=== PATIENT | male | born 1985 | race American Indian/Alaskan Native ===

== ENCOUNTER 2017-07-26 20:45 | Emergency (ER) | payer OTHER ==
[2017-07-26 21:26] VITALS: BP 135/78; PULSE 80; RESP 16; TEMP 97.8
[2017-07-26 21:31] VITALS: BMI 36.3
--- NOTE | 2017-07-26 21:37 | ED PDOC ---
Arrival/HPI - General Chief Complaint: ENT Problem Time Seen by Provider: 07/26/17 21:36 Historian: Patient - History of Present Illness Narrative History of Present Illness (Text): 07/26/17 21:36 This 31 yo male who denies pmh, presents to this ED c/o left sore throat. Past Medical History - Past History Past History: No Previous - Infectious Disease Hx of Infectious Diseases: None - Tetanus Immunization Tetanus Immunization: Unknown - Past Medical History Past Medical History: No Previous - Psychiatric Hx Depression: No Hx Emotional Abuse: No Hx Physical Abuse: No Hx Substance Use: No - Past Surgical History Past Surgical History: No Previous - Surgical History Other/Comment: hernia surgery - Anesthesia Hx Anesthesia: No - Suicidal Assessment Feels Threatened In Home Enviroment: No Family/Social History Smoking Status: Never Smoked Hx Alcohol Use: No Hx Substance Use: No Hx Substance Use Treatment: No Allergies/Home Meds Allergies/Adverse Reactions: Allergies No Known Allergies Allergy (Verified 07/26/17 21:31) Physical Exam Vital Signs Temp Pulse Resp BP Pulse Ox 07/26/17 21:26 97.8 F 80 16 135/78 100 Medical Decision Making ED Course and Treatment: 07/26/17 21:55 Re-evaluation. Patient feels better. Discussed results and plan with patient who expresses understanding. All questions answered and there is agreement with the plan to discharge home with instructions. Patient stable for discharge. Return if symptoms persist or worsen. 07/26/17 21:55 patient refused rapid strep test Re-evaluation Time: 21:55 Reassessment Condition: Re-examined, Unchanged Disposition/Present on Arrival - Present on Arrival Any Indicators Present on Arrival: No History of DVT/PE: No History of Uncontrolled Diabetes: No Urinary Catheter: No History of Decub. Ulcer: No History Surgical Site Infection Following: None - Disposition Have Diagnosis and Disposition been Completed?: Yes Diagnosis: Sore throat Disposition: HOME/ ROUTINE Disposition Time: 21:55 Patient Plan: Discharge Condition: GOOD Discharge Instructions (ExitCare): Pharyngitis (ED) Additional Instructions: Call private doctor for follow up visit in 1-2 days. Take medication as instructed. Follow up ENT doctor if sore throat persist Prescriptions: Amoxicillin [Amoxil 500 mg Cap] 500 mg PO TID #30 cap Naproxen 500 mg PO BID PRN #14 tab PRN Reason: Pain, Severe (8-10) Referrals: Juventino Goldstein MD [Primary Care Provider] - Follow up with primary Forms: [employer] (Kyrgyz)
[2017-07-26 22:25] VITALS: O2SAT 98
== END 2017-07-26 22:26 | disposition home or self-care (01) ==
LOC: ED 20:45
DX: J02.9 Acute pharyngitis, unspecified (principal)

== ENCOUNTER 2017-11-28 20:13 | Emergency (ER) | payer OTHER ==
[2017-11-28 20:14] VITALS: BMI 36.3
[2017-11-28 20:57] VITALS: RESP 18; TEMP 97.4; O2SAT 100
[2017-11-28] MEDS ORDERED: Sodium Chloride 0.9% 1,000 ML IV STA (21:23)
--- NOTE | 2017-11-28 21:30 | ED PDOC ---
Arrival/HPI - General Chief Complaint: Headache Time Seen by Provider: 11/28/17 21:19 Historian: Patient - History of Present Illness Narrative History of Present Illness (Text): 11/28/17 21:22 A 32 year old male, with no significant past medical history, presents to the emergency department today complaining of generalized malaise that began this afternoon. He states that on his way back from work he became lightheaded. The patient notes that when his symptoms began, he took an Aspirin with no relief of his symptoms. He notes that he was feeling weak, he began to feel a tingling sensation in both his arms, nausea, vomiting. The patient's notes that the patient woke out in a cold sweat and was having difficulty walking which prompted them to call EMS. The patient does not recall the last time he saw his PMD and notes that he has not received a flu shot. The patient denies fevers, chest pain, shortness of breath, dyspnea on exertion, cough, abdominal pain, diarrhea, back pain, neck pain, urinary/bowel changes, sick contacts, or any other complaint. PMD: Dr. Cari Goldstein Time/Duration: Other (This Afternoon) Symptom Onset: Sudden Symptom Course: Unchanged Activities at Onset: Rest, Light Context: Home Past Medical History - Provider Review Nursing Documentation Reviewed: Yes - Past History Past History: No Previous - Infectious Disease Hx of Infectious Diseases: None - Tetanus Immunization Tetanus Immunization: Unknown - Past Medical History Past Medical History: No Previous - Psychiatric Hx Substance Use: No - Past Surgical History Past Surgical History: No Previous - Surgical History Other/Comment: hernia surgery - Anesthesia Hx Anesthesia: No - Suicidal Assessment Feels Threatened In Home Enviroment: No Family/Social History - Physician Review Nursing Documentation Reviewed: Yes Family/Social History: No Known Family HX Smoking Status: Never Smoked Hx Alcohol Use: No Hx Substance Use: No Hx Substance Use Treatment: No Allergies/Home Meds Allergies/Adverse Reactions: Allergies No Known Allergies Allergy (Verified 07/26/17 21:31) Review of Systems - Physician Review All systems were reviewed & negative as marked: Yes - Review of Systems Constitutional: absent: Fevers Respiratory: absent: SOB, Cough Cardiovascular: absent: Chest Pain, HU[place]HREY Gastrointestinal: Nausea, Vomiting. absent: Abdominal Pain, Stool Changes, Diarrhea Genitourinary Male: absent: Urinary Output Changes Musculoskeletal: Other (Tingling sensation in arms. ). absent: Back Pain, Neck Pain Neurological: Dizziness (Lightheadedness). absent: Headache Physical Exam Vital Signs Reviewed: Yes Vital Signs Temp Pulse Resp BP Pulse Ox 11/28/17 20:56 97.4 F L 82 18 153/87 H 100 Temperature: Hypothermic Blood Pressure: Hypertensive Pulse: Regular Respiratory Rate: Normal Appearance: Positive for: Well-Appearing, Non-Toxic Pain Distress: None Mental Status: Positive for: Alert and Oriented X 3 - Systems Exam Head: Present: Atraumatic, Normocephalic Pupils: Present: PERRL Extroacular Muscles: Present: EOMI Conjunctiva: Present: Normal Mouth: Present: Moist Mucous Membranes Neck: Present: Normal Range of Motion Respiratory/Chest: Present: Clear to Auscultation, Good Air Exchange. No: Respiratory Distress, Accessory Muscle Use Cardiovascular: Present: Regular Rate and Rhythm, Normal S1, S2. No: Murmurs Abdomen: Present: Normal Bowel Sounds. No: Tenderness, Distention, Peritoneal Signs Back: Present: Normal Inspection Upper Extremity: Present: Normal Inspection. No: Cyanosis, Edema Lower Extremity: Present: Normal Inspection. No: Edema Neurological: Present: GCS=15, CN II-XII Intact, Speech Normal Skin: Present: Warm, Dry, Normal Color. No: Rashes Psychiatric: Present: Alert, Oriented x 3, Normal Insight, Normal Concentration Medical Decision Making ED Course and Treatment: 11/28/17 21:31 Impression: A 32 year old male presents to the emergency department complaining of generalized malaise that began this afternoon. Plan: -- Chest X-ray -- Labs -- Urinalysis -- Zofran and IV Fluids -- Reassess and disposition Prior Visits: Notes and results from previous visits were reviewed. Patient was last seen in the emergency department on 07/26/17. The patient was seen in the emergency department for a complaint of 2 day duration sore throat. The patient was discharged home. Progress Notes: - Lab Interpretations Lab Results: 11/28/17 21:49 11/28/17 21:49 Lab Results 11/28/17 21:49: Sodium 142, Potassium 4.5, Chloride 105, Carbon Dioxide 28, Anion Gap 14, BUN 17, Creatinine 1.2, Est GFR ( Amer) > 60, Est GFR (Non- Af Amer) > 60, Random Glucose 129 H, Calcium 9.6, Total Bilirubin 0.7, AST 35, ALT 41, Alkaline Phosphatase 85, Lactate Dehydrogenase 460, Total Creatine Kinase 387 H, CK-MB (CK-2) 1.6, CK-MB (CK-2) % Cancelled, Troponin I < 0.01, Total Protein 8.1, Albumin 4.5, Globulin 3.6, Albumin/Globulin Ratio 1.3, Lipase 59 11/28/17 21:49: Urine Color Yellow, Urine Appearance Clear, Urine pH 7.0, Ur Specific Halliday 1.025, Urine Protein 30 H, Urine Glucose (UA) Negative, Urine Ketones Negative, Urine Blood Negative, Urine Nitrate Negative, Urine Bilirubin Negative, Urine Urobilinogen 0.2, Ur Leukocyte Esterase Negative, Urine RBC 0 - 2, Urine WBC 0 - 2, Ur Epithelial Cells 0 - 2, Urine Bacteria Occ 11/28/17 21:49: PT 12.6 H, INR 1.10 H 11/28/17 21:49: WBC 12.2 H, RBC 4.65, Hgb 14.2, Hct 42.3, MCV 91.0, MCH 30.5, MCHC 33.6, RDW 12.9, Plt Count 199, MPV 11.8 H, Gran % 81.0 H, Lymph % (Auto) 15.0 L, Pershing % (Auto) 3.6, Eos % (Auto) 0.2 L, Baso % (Auto) 0.2, Gran # 9.85 H , Lymph # 1.8, Pershing # 0.4, Eos # 0.0, Baso # 0.02 I have reviewed the lab results: Yes - RAD Interpretation Radiology Orders: 11/28/17 21:23 CHEST PORTABLE [RAD] Stat - Medication Orders Current Medication Orders: Discontinued Medications Sodium Chloride (Sodium Chloride 0.9%) 1,000 mls @ 999 mls/hr IV .Q1H1M STA Stop: 11/28/17 22:23 Last Admin: 11/28/17 21:59 Dose: 999 mls/hr eMAR Start Stop Document 11/28/17 21:59 OCS (Rec: 11/28/17 21:59 OCS [id number]) Intravenous Solution Start Date 11/28/17 Start Time 21:59 End Date 11/28/17 End time 23:00 Total Infusion Time 61 Ondansetron HCl (Zofran Inj) 4 mg IVP STAT STA Stop: 11/28/17 21:24 Last Admin: 11/28/17 21:59 Dose: 4 mg IVP Administration Document 11/28/17 21:59 OCS (Rec: 11/28/17 22:00 OCS [id number]) Charges for Administration # of IVP Administrations 1 - Scribe Statement The provider has reviewed the documentation as recorded by the Sergioibe Funmi Millan Provider Scribe Attestation: All medical record entries made by the Scribe were at my direction and personally dictated by me. I have reviewed the chart and agree that the record accurately reflects my personal performance of the history, physical exam, medical decision making, and the department course for this patient. I have also personally directed, reviewed, and agree with the discharge instructions and disposition. Disposition/Present on Arrival - Present on Arrival Any Indicators Present on Arrival: No History of DVT/PE: No History of Uncontrolled Diabetes: No Urinary Catheter: No History of Decub. Ulcer: No History Surgical Site Infection Following: None - Disposition Have Diagnosis and Disposition been Completed?: Yes Diagnosis: Viral syndrome Disposition: HOME/ ROUTINE Disposition Time: :22 Patient Plan: Discharge Condition: GOOD Discharge Instructions (ExitCare): Viral Syndrome (ED) Additional Instructions: Armando- All of your tests were normal tonight..... This is most probably just a viral infection. Rest, Plenty of fluids, Zofran ODT for nausea or vomiting, Return to us if worse, Follow up with your doctor later this week. Brian- Dr. Silvino Phoenix Forms: [employer] (Turkmen)
[2017-11-28 22:01] LABS: BASO # 0.02 K/mm3 (0.0-2.0); BASO % 0.2 % (0.0-3.0); EOS % 0.2 % (1.5-5.0); GRAN # 9.85 (1.4-6.5); HEMOGLOBIN 14.2 g/dL (14.0-18.0); LYMPH # 1.8 (1.2-3.4); MEAN CORPUSCULAR HEMOGLOBIN 30.5 pg (25.0-35.0); MEAN CORPUSCULAR HGB CONC 33.6 g/dl (31.0-37.0); MEAN PLATELET VOLUME 11.8 fl (7.0-11.0); MONO # 0.4 (0.1-0.6); MONO % 3.6 % (1.0-6.0); RBC 4.65 10^6/uL (3.5-6.1); RED CELL DISTRIBUTION WIDTH 12.9 % (11.5-14.5); URINE BILIRUBIN NEGATIVE (NEGATIVE); URINE BLOOD NEGATIVE (NEGATIVE); URINE GLUCOSE (UA) NEGATIVE (NEGATIVE); URINE LEUKOCYTE ESTERASE NEGATIVE Leu/uL (NEGATIVE); URINE NITRATE NEGATIVE (NEGATIVE); URINE PROTEIN 30 mg/dL (<30 mg/dL); URINE UROBILINOGEN 0.2 E.U./dL (<1 E.U./dL); WHITE BLOOD COUNT 12.2 10^3/ul (4.5-11.0)
[2017-11-28 22:06] LABS: URINE APPEARANCE CLEAR (CLEAR); URINE COLOR YELLOW (YELLOW)
[2017-11-28 22:09] LABS: ALB/GLOB RATIO 1.3 (1.1-1.8); ALBUMIN 4.5 g/dL (3.0-4.8); ALT/SGPT 41 U/L (7-56); AST/SGOT 35 U/L (17-59); BLOOD UREA NITROGEN 17 mg/dL (7-21); CALCIUM 9.6 mg/dL (8.4-10.5); GFR AFRICAN-AMERICAN > 60; GFR NON-AFRICAN AMERICAN > 60; INR 1.1 (0.93-1.08); LIPASE 59 U/L (23-300); PROTHROMBIN TIME 12.6 SECONDS (9.4-12.5)
[2017-11-28 22:17] LABS: URINE BACTERIA OCC (NEG); URINE EPITHELIAL CELLS 0 - 2 /hpf (0-5); URINE RBC 0 - 2 /hpf (0-2); URINE WBC 0 - 2 /hpf (0-6)
[2017-11-28 22:20] LABS: TROPONIN I < 0.01 ng/mL
[2017-11-28 22:31] LABS: CK-MB 1.6 ng/mL (0.0-3.6)
[2017-11-29 01:37] VITALS: BP 123/77; PULSE 80
--- NOTE | 2017-11-29 09:37 | RAD ---
HISTORY: weak/dizzy COMPARISON: 07/06/2013 FINDINGS: LUNGS: No active pulmonary disease. PLEURA: No significant pleural effusion identified, no pneumothorax apparent. CARDIOVASCULAR: Normal. OSSEOUS STRUCTURES: No significant abnormalities. VISUALIZED UPPER ABDOMEN: Normal. OTHER FINDINGS: None. IMPRESSION: No active disease.
== END 2017-11-29 01:37 | disposition home or self-care (01) ==
LOC: ED 20:13
DX: B34.9 Viral infection, unspecified (principal)
CPT/HCPCS: 71045; 80053; 81001; 82550; 82553; 83615; 83690; 84484; 85025; 85610; 96361; 96374; 99285; J2405; J7040

== ENCOUNTER 2018-03-19 06:14 | Emergency (ER) | payer OTHER ==
[2018-03-19 06:49] VITALS: BMI 37.3
[2018-03-19 07:01] VITALS: PULSE 90; RESP 18; TEMP 98.1; O2SAT 98
[2018-03-19 07:03] VITALS: BP 135/83
--- NOTE | 2018-03-19 07:18 | ED PDOC ---
Arrival/HPI - General Chief Complaint: Lower Extremity Problem/Injury Time Seen by Provider: 03/19/18 07:05 Historian: Patient - History of Present Illness Narrative History of Present Illness (Text): 03/19/18 07:18 A 32 year old male, who denies any significant past medical history, presents to the emergency department for right knee pain, which began 3 days ago. The patient states he was horse playing with his son when he suddenly heard a "pop in his leg." He states that he has pain and he notices when he is walking he is limping. The patient denies any left knee pain, right leg pain, right ankle pain , fever, back pain, chest pain, or any other complaints at this time. The patient denies taking any Tylenol or Motrin for the pain and swelling. Time/Duration: < week (3 days ) Symptom Onset: Sudden Symptom Course: Unchanged Activities at Onset: Significant (playing with son ) Context: Home Past Medical History - Provider Review Nursing Documentation Reviewed: Yes - Past History Past History: No Previous - Infectious Disease Hx of Infectious Diseases: None - Tetanus Immunization Tetanus Immunization: Unknown - Past Medical History Past Medical History: No Previous - Psychiatric Hx Depression: No Hx Emotional Abuse: No Hx Physical Abuse: No Hx Substance Use: No - Past Surgical History Past Surgical History: No Previous - Surgical History Other/Comment: hernia surgery - Anesthesia Hx Anesthesia: No - Suicidal Assessment Feels Threatened In Home Enviroment: No Family/Social History - Physician Review Nursing Documentation Reviewed: Yes Family/Social History: No Known Family HX Smoking Status: Never Smoked Hx Alcohol Use: No Hx Substance Use: No Hx Substance Use Treatment: No Allergies/Home Meds Allergies/Adverse Reactions: Allergies No Known Allergies Allergy (Verified 11/29/17 02:05) Review of Systems - Physician Review All systems were reviewed & negative as marked: Yes - Review of Systems Constitutional: absent: Fevers Cardiovascular: absent: Chest Pain Gastrointestinal: absent: Abdominal Pain Musculoskeletal: Other (right knee tenderness/swelling). absent: Back Pain Physical Exam Vital Signs Reviewed: Yes Vital Signs Temp Pulse Resp BP Pulse Ox 03/19/18 07:00 98.1 F 90 18 135/83 98 Temperature: Afebrile Blood Pressure: Normal Pulse: Regular Respiratory Rate: Normal Appearance: Positive for: Well-Appearing, Non-Toxic, Comfortable Pain Distress: None Mental Status: Positive for: Alert and Oriented X 3 - Systems Exam Head: Present: Atraumatic, Normocephalic Pupils: Present: PERRL Extroacular Muscles: Present: EOMI Conjunctiva: Present: Normal Mouth: Present: Moist Mucous Membranes Neck: Present: Normal Range of Motion Respiratory/Chest: Present: Clear to Auscultation, Good Air Exchange. No: Respiratory Distress, Accessory Muscle Use Cardiovascular: Present: Regular Rate and Rhythm, Normal S1, S2. No: Murmurs Abdomen: No: Tenderness, Distention, Peritoneal Signs Back: Present: Normal Inspection Upper Extremity: Present: Normal Inspection. No: Cyanosis, Edema Lower Extremity: Present: NORMAL PULSES, Normal ROM, Tenderness (medial side tenderness of right knee ), Swelling (mild swelling of right knee), Neurovascularly Intact Neurological: Present: GCS=15, CN II-XII Intact, Speech Normal Skin: Present: Warm, Dry, Normal Color. No: Rashes Psychiatric: Present: Alert, Oriented x 3, Normal Insight, Normal Concentration Medical Decision Making ED Course and Treatment: 03/19/18 07:18 Impression: A 32 year old male with right knee pain. Differential Diagnosis included but are not limited to: Knee strain vs. fracture Plan: -- Right knee X-ray -- Ibuprofen -- Crutches/Immobilizer -- Reassess and disposition Progress Notes: 03/19/18 08:20 Patient's xray is negative for fracture or dislocation. He was placed in a knee immobilzer and advised to follow up with Orthopedics, Dr. Tafoya and his PMD. He was explained to rest, ice and elevate. He will take Motrin for pain and inflammation. - RAD Interpretation Radiology Orders: 03/19/18 07:13 KNEE RIGHT 2 VIEWS (AP & LAT) [RAD] Stat - Medication Orders Current Medication Orders: Discontinued Medications Ibuprofen (Motrin Tab) 600 mg PO STAT STA Stop: 03/19/18 07:14 Last Admin: 03/19/18 07:44 Dose: 600 mg MAR Pain/Vitals Document 03/19/18 07:44 SRE (Rec: 03/19/18 07:44 SRE [id number]) Pain Reassessment Is This A Pain ReAssessment? Yes Sleep Is patient sleeping during reassessment? No Presence of Pain Presence of Pain Yes Pain Scale Used Pain Scale Used Numeric Location Left, Right or Bilateral Right Pain Location Body Site Knee Description Intermittent - Scribe Statement The provider has reviewed the documentation as recorded by the Sergioibe Magda Singletary Provider Scribe Attestation: All medical record entries made by the Sergioibe were at my direction and personally dictated by me. I have reviewed the chart and agree that the record accurately reflects my personal performance of the history, physical exam, medical decision making, and the department course for this patient. I have also personally directed, reviewed, and agree with the discharge instructions and disposition. Disposition/Present on Arrival - Present on Arrival Any Indicators Present on Arrival: No History of DVT/PE: No History of Uncontrolled Diabetes: No Urinary Catheter: No History of Decub. Ulcer: No History Surgical Site Infection Following: None - Disposition Have Diagnosis and Disposition been Completed?: Yes Diagnosis: Knee sprain Disposition: HOME/ ROUTINE Disposition Time: 08:24 Patient Plan: Discharge Condition: IMPROVED Discharge Instructions (ExitCare): Knee Sprain (DC) Additional Instructions: Mr Castellano, thank you for letting us take care of you today. Your provider was Dr. Khalil. You were treated for Knee Sprain. The emergency medical care you received today was directed at your acute symptoms. If you were prescribed any medication, please fill it and take as directed. It may take several days for your symptoms to resolve. Return to the Emergency Department if your symptoms worsen, do not improve, or if you have any other problems. Please contact your doctor or call one of the physicians/clinics you have been referred to that are listed on the Patient Visit Information form that is included in your discharge packet. Bring any paperwork you were given at discharge with you along with any medications you are taking to your follow up visit. Our treatment cannot replace ongoing medical care by a primary care provider (PCP) outside of the emergency department. Thank you for allowing the [facility] team to be part of your care today. If you had an X-Ray or CT scan: A Radiologist will review the ED reading if any change in treatment is needed we will contact you. If you had a blood, urine, or wound culture: It will take several days for the results, if any change in treatment is needed we will contact you. If you had an STI test: It will take 48 hours for the results. Please call after 1 week if you have not heard back. Prescriptions: Ibuprofen [Motrin] 600 mg PO Q6 PRN #30 tab PRN Reason: Pain, Moderate (4-7) Referrals: Sofía Lam MD [Staff Provider] - Follow up with primary Forms: [employer] ([place]), WORK NOTE
--- NOTE | 2018-03-19 08:22 | RAD ---
PROCEDURE: Right knee x-ray HISTORY: injury r/o fx COMPARISON: No prior TECHNIQUE: Two views of the right knee were performed. FINDINGS: No appreciable fracture is noted. There is evidence however of a focal area of osteochondritis dissecans in the medial femoral condyle with a possible small associated fragment within the defect. There is mild medial compartment narrowing and spurring. Lesser degree degenerative changes are seen elsewhere. There is a suggestion of a possible small joint effusion. Tibial plateaus are intact. Proximal fibula is intact. Prepatellar soft tissues are within normal limits. Patella appears normal location. IMPRESSION: No appreciable fracture. 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 Small joint effusion.
== END 2018-03-19 08:24 | disposition home or self-care (01) ==
LOC: ED 06:14
DX: S83.91XA Sprain of unspecified site of right knee, initial encounter (principal); Y93.83 Activity, rough housing and horseplay